=== PATIENT | male | born 1985 | race Caucasian/White ===

== ENCOUNTER 2018-03-04 13:44 | Emergency (ER) | payer OTHER ==
[2018-03-04] MEDS ORDERED: Lidocaine 1% INJ* 10 MG/ML 30 ML SDV ONE (15:32)
--- NOTE | 2018-03-04 16:18 | ED ---
Skin Complaint - HPI Summary HPI Summary: Patient is a otherwise healthy 32-year-old male presenting to the ED with a chief complaint of a red swollen acute painful area just at the gluteal cleft, which he noticed approximately 3 days ago. He states the area has been worsening and spontaneously draining purulent white milky discharge. The discharge is malodorous. He states he has been sitting for prolonged periods of time recently, he also endorses hair density to the cleft, no family history of pilonidal, no local trauma, however patient is obese. He has never had this type of complaint in the past. Denies any fevers, sweats, chills. He has been feeling otherwise well. Symptoms are aggravated with sitting, alleviated with standing. He has been taking Advil for relief. - History of Current Complaint Chief Complaint: EDRashSkinAbscess Time Seen by Provider: 03/04/18 14:54 Stated Complaint: CYST Hx Obtained From: Patient Onset/Duration: Started Hours Ago Skin Exposure Onset/Duration: Hours Ago Timing: Constant Onset Severity: Moderate Current Severity: Moderate Pain Intensity: 5 Pain Scale Used: 0-10 Numeric Skin Location: Other: - Hailey cleft Character: Swelling, Pain, Redness, Raised Aggravating Symptom(s): Touch Alleviating Symptom(s): Nothing Associated Signs & Symptoms: Tenderness Related History: Other: - Sitting for long periods of time - Allergy/Home Medications Allergies/Adverse Reactions: Allergies Allergy/AdvReac Type Severity Reaction Status Date / Time No Known Allergies Allergy Verified 03/04/18 13:48 Home Medications: Home Medications Ibuprofen TAB* [Advil TAB*] 800 mg PO Q8H PRN 03/04/18 [History Confirmed ] PMH/Surg Hx/FS Hx/Imm Hx Previously Healthy: Yes Infectious Disease History: No Infectious Disease History: Denies: Traveled Outside the [place] in Last 30 Days - Social History Occupation: Employed Full-time Lives: With Family Alcohol Use: Occasionally Hx Substance Use: No Substance Use Type: Reports: None Hx Tobacco Use: No Smoking Status (MU): Never Smoked Tobacco Review of Systems Constitutional: Negative Negative: Fever, Chills, Fatigue, Skin Diaphoresis Negative: Photophobia, Blurred Vision Negative: Palpitations, Chest Pain Negative: Shortness Of Breath, Cough Negative: Abdominal Pain, Vomiting, Diarrhea, Nausea Genitourinary: Negative Positive: no symptoms reported, see HPI Musculoskeletal: Negative Positive: Other - cyst. Negative: Rash, Bruising Negative: Weakness Negative: Anxious, Depressed All Other Systems Reviewed And Are Negative: Yes Physical Exam Triage Information Reviewed: Yes Vital Signs On Initial Exam: Initial Vitals Temp Pulse Resp BP Pulse Ox 96.6 F 78 16 155/75 100 03/04/18 13:49 03/04/18 13:49 03/04/18 13:49 03/04/18 13:49 03/04/18 13:49 Vital Signs Reviewed: Yes Appearance: Positive: Well-Appearing, Well-Nourished - I don't Skin: Positive: Other - pilonidal cyst Head/Face: Positive: Normal Head/Face Inspection Eyes: Positive: EOMI, LUIS Neck: Positive: Supple, No Lymphadenopathy Respiratory/Lung Sounds: Positive: Clear to Auscultation Cardiovascular: Positive: Normal, RRR, Pulses are Symmetrical in both Upper and Lower Extremities Musculoskeletal: Positive: Strength/ROM Intact Neurological: Positive: Normal, Sensory/Motor Intact, Pronator Drift Present Psychiatric: Positive: Affect/Mood Appropriate AVPU Assessment: Alert Procedures - Incision and Drainage Anesthesia: Local, Lidocaine Instrument(s): Scalpel Packing: Other - 2 chromic gut sutures Diagnostics - Vital Signs Vital Signs Temp Pulse Resp BP Pulse Ox 03/04/18 13:49 96.6 F 78 16 155/75 100 - Laboratory Lab Statement: Any lab studies that have been ordered have been reviewed, and results considered in the medical decision making process. Course/Dx - Course Course Of Treatment: During the course of treatment, the patient is evaluated for acute pilonidal cyst. There is a large 2.5 x 2 cm raised erythematous painful area to the needle cleft of the buttocks. The area just inferior to the abscess is spontaneously draining. There appears to be a small area of surrounding cellulitis to the hailey cleft around the tender fluctuant mass. The area was prepped using Betadine and using sterile technique. Time out obtained. 4 male lidocaine without epi used as local anesthetic. A 11 blade 0.4 cm small incision made directly to the most superior portion of the fluctuant mass. Bloody serosanguineous drainage without pussy discharge. Another small 0.2 centimeter incision made just inferior to previous incision with a copious amount of milky white discharge. Approximately 2 mL discharge obtained. Culture obtained and sent to lab. The area continues to bleed and the area requires to chromic gut absorbable sutures. This with relief. Placed on Bactrim twice daily 5 days. Patient will return to the ED in 2 days for a wound check with myself. He understands return precautions and is okay for discharge at this time. The area is gauze wrapped with Tegaderm. - Diagnoses Provider Diagnoses: Pilonidal cyst Discharge - Sign-Out/Discharge Documenting (check all that apply): Discharge - Discharge Plan Condition: Stable Disposition: HOME Prescriptions: Sulfamethox/Trimethoprim DS* [Bactrim DS 800/160 TAB*] 1 tab PO BID #10 tab Patient Education Materials: Pilonidal Cyst (ED) Referrals: Sid Smith MD [Medical Doctor] - Mich CARR,Sid Aaron [Primary Care Provider] - Additional Instructions: Please follow up here in the ED to see me in 2 days for a wound re-check You may change the bandage anytime seepage or draining through the gauze occurs Tylenol and ibuprofen intermittently for pain control If you develop a fever - return to the ED immediately Bactrim - take twice daily x 5 days - Billing Disposition and Condition Condition: STABLE Disposition: HOME
[2018-03-04 16:33] VITALS: BP 152/86
--- NOTE | 2018-03-06 07:08 | PN ---
Progress Note - Progress Note Date of Service: 03/06/18 Note: Wound culture grew MRSA positive, staph aureus positive Patient was placed on Bactrim Nothing further at this time due to adequate coverage
--- NOTE | 2018-03-09 07:28 | ED ---
Progress - Progress Note Progress Note: Organism sensitive to Bactrim. No changes at this time. Course/Dx - Course Course Of Treatment: During the course of treatment, the patient is evaluated for acute pilonidal cyst. There is a large 2.5 x 2 cm raised erythematous painful area to the needle cleft of the buttocks. The area just inferior to the abscess is spontaneously draining. There appears to be a small area of surrounding cellulitis to the cleft around the tender fluctuant mass. The area was prepped using Betadine and using sterile technique. Time out obtained. 4 male lidocaine without epi used as local anesthetic. A 11 blade 0.4 cm small incision made directly to the most superior portion of the fluctuant mass. Bloody serosanguineous drainage without pussy discharge. Another small 0.2 centimeter incision made just inferior to previous incision with a copious amount of milky white discharge. Approximately 2 mL discharge obtained. Culture obtained and sent to lab. The area continues to bleed and the area requires to chromic gut absorbable sutures. This with relief. Placed on Bactrim twice daily 5 days. Patient will return to the ED in 2 days for a wound check with myself. He understands return precautions and is okay for discharge at this time. The area is gauze wrapped with Tegaderm. - Diagnoses Provider Diagnoses: Pilonidal cyst Discharge - Sign-Out/Discharge Documenting (check all that apply): Post-Discharge Follow Up - Discharge Plan Condition: Stable Disposition: HOME Prescriptions: Sulfamethox/Trimethoprim DS* [Bactrim DS 800/160 TAB*] 1 tab PO BID #10 tab Patient Education Materials: Pilonidal Cyst (ED) Referrals: Sid Smith MD [Medical Doctor] - Sid Epps MD [Primary Care Provider] - Additional Instructions: Please follow up here in the ED to see me in 2 days for a wound re-check You may change the bandage anytime seepage or draining through the gauze occurs Tylenol and ibuprofen intermittently for pain control If you develop a fever - return to the ED immediately Bactrim - take twice daily x 5 days - Billing Disposition and Condition Condition: STABLE Disposition: HOME
== END 2018-03-04 16:32 | disposition home or self-care (01) ==
LOC: ED 13:44
DX: L05.91 Pilonidal cyst without abscess (principal)
CPT/HCPCS: 87070; 87077; 87186; 87205; 87640; 87641; 99282